=== PATIENT | female | born 1935 | race Caucasian/White ===

== ENCOUNTER 2018-01-25 09:22 | Emergency (ER) | payer MEDICARE ==
--- NOTE | 2018-01-25 10:15 | UC ---
Upper Extremity HPI - HPI Summary HPI Summary: 82 year old female with left arm pain . 2 months ago had some weakness and went to ED and was in CHF and renal failure and hyperkalemia. Present for at least one month or longer. Worsened when she moves her thumb. no trauma no falls. saw pcp 6 WEEKS AGO AND NO PAIN AT THAT TIME. ? gout a few years ago. has redness on the arm that presented itself about a week ago and its itchy, has applied cortisone and apple cider vinegar and slightly improved. no pain in the forearm. no pain in the elbow ot shoulder. pain when moving the thumb over the past 3-4 weeks has noticed the pain can radiate in to the elbow. no bruising. no weakness. has trigger finger middle finger in the right hand . no previous DVT ./clotting concerns. No SOB. No significant swelling of the arm over the past few weeks. - History of Current Complaint Stated Complaint: LEFT ARM/HAND PAIN Time Seen by Provider: 01/25/18 10:09 Hx Obtained From: Patient ?: No Onset/Duration: Gradual Onset Severity Initially: Moderate Severity Currently: Moderate Character: Aching Aggravating Factor(s): Movement, Lifting, Flexion - thumb, Extension - thumb Alleviating Factor(s): Rest - Allergies/Home Medications Allergies/Adverse Reactions: Allergies Allergy/AdvReac Type Severity Reaction Status Date / Time amlodipine Allergy Unknown fhf, Verified 01/25/18 09:58 kidney failure fish oil Allergy Unknown Swelling Verified 01/25/18 09:58 losartan Allergy Unknown chf, high Verified 01/25/18 09:58 potassium Home Medications: Home Medications Furosemide TAB* [Lasix TAB*] 40 mg PO DAILY 01/25/18 [History Confirmed 01/25/18 ] Multivitamin/Iron/Folic Acid [Centrum Complete Multivit Tab] 1 each PO 01/25/18 [History] Terazosin CAP* [Hytrin CAP*] 2 mg PO DAILY 01/25/18 [History Confirmed 01/25/18] glipiZIDE [Glipizide ER] 5 mg PO DAILY 01/25/18 [History Confirmed 01/25/18] PMH/Surg Hx/FS Hx/Imm Hx Previously Healthy: Yes Endocrine History: Diabetes, Dyslipidemia Cardiovascular History: Hypertension - Surgical History Surgical History: Yes Surgery Procedure, Year, and Place: - CABG. [place] - Family History Known Family History: Positive: Unknown - Social History Occupation: Retired Alcohol Use: None Substance Use Type: None Smoking Status (MU): Former Smoker Type: Cigarettes Have You Smoked in the Last Year: No When Did the Patient Quit Smoking/Using Tobacco: 2003 - Immunization History Most Recent Tetanus Shot: PT CAN RECALL. Review of Systems Musculoskeletal: Arthralgia, Decreased ROM Is Patient Immunocompromised?: No All Other Systems Reviewed And Are Negative: Yes Physical Exam Triage Information Reviewed: Yes Appearance: Well-Appearing, No Pain Distress, Well-Nourished Vital Signs Reviewed: Yes Eye Exam: Normal ENT Exam: Normal Respiratory Exam: Normal Cardiovascular Exam: Normal Musculoskeletal Exam: Normal Musculoskeletal: Positive: Strength Intact, ROM Intact, Other: - left forearm with redness anteriorly 4x5 cm . blanchable . not tender. strength hand and UE 5 /5. sensation intact. pain the thumb with movement but no loss of ROM. cap refill < 3 sec. brisk pulses in radial pulse. moderate swelling left forearm Neurological Exam: Normal Psychological Exam: Normal Skin Exam: Normal Re-Evaluation - Re-Evaluation First Eval Change: Unchanged Comment: BP recheck with diastlic low at 41. Of note when patient walked in she was off balance and had to catch herself from falling. xray shows IMPRESSION: SOFT TISSUE SWELLING, NO FRACTURE IS SEEN. Upper Extremity Course/Dx - Course Course Of Treatment: Spoke with patient and son and with her current symptoms, very recent history of CHF / renal failure she would benefit from further eval in ED. + - Differential Dx/Diagnosis Differential Diagnosis/HQI/PQRI: Bursitis, Fracture (Closed), Strain, Sprain, Other - gout or tenosynovitis Provider Diagnoses: Left arm pain /swelling/erythema. Diastolic hypotension - Physician Notification/Consults Discussed Patient Care With: michael rose Time Discussed With Above Provider: 11:30 Discharge - Sign-Out/Discharge Documenting (check all that apply): Discharge - Discharge Plan Condition: Fair Disposition: [facility] Referrals: Cynthia Urban [Primary Care Provider] - 4 Days Additional Instructions: PLEASE GO DIRECTLY TO THE EMERGENCY ROOM FOR FURTHER EVALUATION - Billing Disposition and Condition Condition: FAIR Disposition: [facility]
[2018-01-25 10:18] VITALS: BP 184/46
--- NOTE | 2018-01-25 10:54 | RAD ---
INDICATION: Left forearm pain. TECHNIQUE: 2 views of the left forearm were obtained. FINDINGS: There is diffuse soft tissue swelling present. The bones appear osteopenic. No fracture is seen. IMPRESSION: SOFT TISSUE SWELLING, NO FRACTURE IS SEEN.
--- NOTE | 2018-01-25 10:55 | RAD ---
Indication: Left thumb pain. 3 views of left thumb demonstrates no fracture. No other bone or joint abnormality is noted. IMPRESSION: No fracture of the left thumb is noted.
== END 2018-01-25 11:41 | disposition home or self-care (01) ==
LOC: UCCORT 09:22
DX: M79.602 Pain in left arm (principal); M79.89 Other specified soft tissue disorders; L53.9 Erythematous condition, unspecified; I95.89 Other hypotension; Z88.8 Allergy status to other drugs, medicaments and biological substances; E11.9 Type 2 diabetes mellitus without complications; Z79.84 Long term (current) use of oral hypoglycemic drugs; I13.0 Hypertensive heart and chronic kidney disease with heart failure and stage 1 through stage 4 chronic kidney disease, or unspecified chronic kidney disease; N18.9 Chronic kidney disease, unspecified; I50.9 Heart failure, unspecified; Z95.1 Presence of aortocoronary bypass graft
CPT/HCPCS: 99212; G0463

== ENCOUNTER 2019-11-09 13:03 | Emergency (ER) | payer MEDICARE ==
[2019-11-09 13:30] VITALS: BP 186/64
--- NOTE | 2019-11-09 14:20 | ED ---
Respiratory - HPI Summary HPI Summary: 84 yo WF h/o CABG, p/w c/o of chest congestion and cough that is nonproductive, associated with fever chills at night and mild shortness of breath. - History of Current Complaint Chief Complaint: UCGeneralIllness Stated Complaint: CHEST CONGESTION/RATTLING Hx Obtained From: Patient, Family/Running Rigger Onset/Duration: Lasting Days Initial Severity: Moderate Current Severity: Moderate Pain Intensity: 0 Character: Cough (Nonproductive) Sputum Amount: None Aggravating Factor(s): Nothing Alleviating Factor(s): Nothing - Allergy/Home Medications Allergies/Adverse Reactions: Allergies Allergy/AdvReac Type Severity Reaction Status Date / Time amlodipine Allergy Unknown fhf, Verified 11/09/19 13:16 kidney failure fish oil Allergy Unknown Swelling Verified 11/09/19 13:16 losartan Allergy Unknown chf, high Verified 11/09/19 13:16 potassium Home Medications: Home Medications Metoprolol Succinate 1 tab PO DAILY 11/09/19 [History Confirmed 11/09/19] PMH/Surg Hx/FS Hx/Imm Hx Previously Healthy: Yes Endocrine/Hematology History: Reports: Hx Diabetes Cardiovascular History: Reports: Hx Hypertension - Surgical History Surgery Procedure, Year, and Place: 06- CABG. cholecystectomy. colon resection 2017 Infectious Disease History: No Infectious Disease History: Reports: Hx Shingles Denies: Traveled Outside the [place] in Last 30 Days - Family History Known Family History: Positive: Unknown - Social History Alcohol Use: None Substance Use Type: Reports: None Smoking Status (MU): Former Smoker Type: Cigarettes Have You Smoked in the Last Year: No Review of Systems Positive: Fever, Chills Eyes: Negative ENT: Negative Positive: Palpitations Positive: Shortness Of Breath, Cough Gastrointestinal: Negative Genitourinary: Negative Musculoskeletal: Negative Skin: Negative Neurological: Negative Psychological: Normal All Other Systems Reviewed And Are Negative: Yes Physical Exam - Summary Physical Exam Summary: Appearance: Positive: No Pain Distress Skin: Positive: Warm Head/Face: Positive: Normal Head/Face Inspection Eyes: :Normal ENT: Normal ENT inspection Neck: Positive: Supple Respiratory/Lung Sounds: Positive: B/L rhonchi with cough, no crackle, wheezing Cardiovascular: Positive: Normal, RRR, S1, S2 Abdomen : soft, NT/ND Musculoskeletal: Positive: Normal, Strength/ROM Intact Neurological: Positive: CN 2-12 grossly intact Vital Signs On Initial Exam: Initial Vitals Temp Pulse Resp BP Pulse Ox 36.6 C 67 18 186/64 99 11/09/19 13:17 11/09/19 13:17 11/09/19 13:17 11/09/19 13:17 11/09/19 13:17 Diagnostics - Vital Signs Vital Signs Temp Pulse Resp BP Pulse Ox 11/09/19 13:17 36.6 C 67 18 186/64 99 - Laboratory Lab Statement: Any lab studies that have been ordered have been reviewed, and results considered in the medical decision making process. Disposition - Course Assessment/Plan: CXR neg for infiltrates but ingrid-bronchial cuffing seen on left lung, c/w bronchitis- will tx with azithromycin - Diagnoses Provider Diagnoses: Bronchitis Discharge ED - Sign-Out/Discharge Documenting (check all that apply): Patient Departure All imaging exams completed and their final reports reviewed: No Studies - Discharge Plan Condition: Stable Disposition: HOME Prescriptions: Azithromycin TAB* [Zithromax TAB (Z-KAILA) 250 mg #6 tabs] 2 tab PO .TODAY, THEN 1 DAILY 5 Days #1 [email or web address] Patient Education Materials: Acute Bronchitis (ED) Referrals: Cynthia Urban [Primary Care Provider] - - Billing Disposition and Condition Condition: STABLE Disposition: Home
== END 2019-11-09 14:52 | disposition home or self-care (01) ==
LOC: UCCORT 13:03
DX: J40 Bronchitis, not specified as acute or chronic (principal); E11.9 Type 2 diabetes mellitus without complications; I10 Essential (primary) hypertension; Z91.013 Allergy to seafood; Z88.8 Allergy status to other drugs, medicaments and biological substances; Z95.1 Presence of aortocoronary bypass graft; Z87.891 Personal history of nicotine dependence; Z79.899 Other long term (current) drug therapy
CPT/HCPCS: 71046; 99212; G0463